=== PATIENT | female | born 1960 | race Caucasian/White ===

== ENCOUNTER → 2024-09-22 | Outpatient (CLI) | payer BC, SELFPAY ==
[2024-09-27 07:07] LABS: HPV APTIMA, High Risk Negative (Negative)
== END | disposition home or self-care (01) ==
LOC: LABSPEC 16:17
PROVIDERS: PCP Internal Medicine; Referring Provider Advanced Practice Midwife; Visit Provider Advanced Practice Midwife
DX: Z78.0 Asymptomatic menopausal state (principal)
CPT/HCPCS: 87624; 88175; G0145

== ENCOUNTER 2024-11-03 18:45 | Emergency (ER) | payer BC, SELFPAY ==
[2024-11-03 18:46] VITALS: BP 128/79; PULSE 80; RESP 18; TEMP 36.4; O2SAT 98; BMI 22.2
--- NOTE | 2024-11-03 19:16 | RAD_ITS ---
PROCEDURE: CHEST PA AND LATERAL 11/03/2024 REASON FOR EXAM: CHEST PAIN TECHNIQUE: Procedure Code: RADCXR Modality: DX Procedure: CHEST PA AND LATERAL COMPARISON: None FINDINGS: No focal consolidation. No pleural effusion or pneumothorax. Cardiac silhouette is within normal limits. No acute fractures. RAD/Chest PA and Lateral IMPRESSION: No focal consolidations. [id number]
--- NOTE | 2024-11-03 19:17 | ED.VIS.CHEST ---
HPI History of Present Illness Chief Complaint: Palpitations Narrative Narrative: Chief complaint and HPI: 64-year-old female with past medical history of inappropriate tachycardia on metoprolol, anxiety presents for evaluation of palpitations. Patient states that [place] States that she walked to the [place] as [place]. States she has had little to eat and drink. States [place] she was at the fair she felt palpitations in which her iPhone told her that she was in atrial fibrillation. She had a medic at the fair perform a twelve-lead. She states during the palpitation she had chest pain and shortness of breath that has since resolved. She denies any fever, chills, abdominal pain, nausea, vomiting. Has no history of atrial fibrillation. Review of systems: See HPI Medications: As listed on the chart Allergies: As listed on the chart PFSH: Per chart Vital signs: As listed on the chart. Reviewed. Physical exam: Gen: A&O x3, NAD Head: Normocephalic, atraumatic Eyes: No sclera icterus, conjunctiva clear ENT: Moist mucous membranes Neck: Trachea midline, No JVD CV: RRR, no murmurs, no peripheral edema Resp: Lungs CTA BL, no w/r/c GI: Abd soft, non-distended, non-tender, no r/r/g Musc: Full ROM, no deformity Skin: Warm, dry Neuro: Alert, oriented, grossly intact, sensation intact Psych: Cooperative, appropriate mood and affect [facility] Medical History Menopause Encounter for colorectal cancer screening using Cologuard test Normal colonoscopy Tachycardia Vaginal delivery Menstrual migraine 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 Closed left malleolar fracture Fracture of left distal radius Right clavicle fracture Venous insufficiency Anxiety PMS (premenstrual syndrome) Home Medications ?Medication ?Instructions ?Recorded ?Last Taken ?Type alprazolam 0.25 mg tablet (Xanax) 0.25 mg PO TID 07/30/24 Unknown History cholecalciferol (vitamin D3) 125 125 mcg PO QDAY 07/30/24 Unknown History mcg (5,000 unit) capsule metoprolol succinate 25 mg 25 mg PO Q12H 07/30/24 Unknown History tablet,extended release 24 hr Allergy/AdvReac Type Severity Reaction Status Date / Time cefaclor (From Ceclor) Allergy Intermediate Other Verified 11/03/24 18:48 Penicillins (PCN) Allergy Mild Hives Verified 11/03/24 18:48 Family History Mother Arthritis Bowel disease Depression Hypertension Osteoporosis Sister Asthma Depression Myocardial infarction, Onset Age: 50 Heart disease High cholesterol Surgical History Status post endovenous radiofrequency ablation (RFA) of saphenous vein Status post phlebectomy Social History adopted: No household members: none housing: condominium number of children: 3 current occupational status: employed 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 @ [employer] pets and animals: No history of recent travel: Yes ([employer] [place]) out of state: Yes out of country: Yes Smoking Status: Former smoker quit date: 02/24/94 alcohol intake: never substance use type: does not use well-balanced diet: daily or most days caffeine: Yes Type: coffee Number of servings: 8 eating out: other details: 2/ month during the past year weight has: remained stable what type of physical activity do you participate in: none minor/sabianist: Worship seatbelt use: always do you feel safe at home: Yes EXAM Physical Exam Const Vital Signs: 11/03/24 18:46 11/03/24 19:40 11/03/24 20:00 Temperature 97.6 F L Temperature Source Oral Pulse Rate 80 74 75 Respiratory Rate 18 16 16 Blood Pressure 128/79 H 130/90 H 107/88 H Blood Pressure Mean 95 103 94 Pulse Ox 98 100 100 Oxygen Delivery Method Room Air Room Air Room Air 11/03/24 21:00 11/03/24 21:59 11/03/24 22:00 Temperature 98 F Temperature Source Pulse Rate 73 73 73 Respiratory Rate 16 16 16 Blood Pressure 114/66 113/67 113/67 Blood Pressure Mean 82 82 82 Pulse Ox 100 100 100 Oxygen Delivery Method Room Air Room Air MDM MDM MDM Narrative Medical decision making narrative: 64-year-old female with past medical history of inappropriate tachycardia on metoprolol, anxiety presents for evaluation of palpitations. Patient states that she has [place] the [place] the [place]. States that she walked to the fair as well. States she has had little to eat and drink. States while she was at the fair she felt palpitations in which her iPhone told her that she was in atrial fibrillation. She had a medic at the fair perform a twelve-lead. She states during the palpitation she had chest pain and shortness of breath that has since resolved. Patient has the twelve-lead on her from the medic. Patient is in normal sinus rhythm with the twelve-lead. She was able to show up the rhythm on her iPhone in which her iPhone states she was in atrial fibrillation. There is artifact on the iPhone limited rhythm strip and there are P waves not consistent with atrial fibrillation. On presentation, patient in normal sinus rhythm with occasional PVCs. Differential diagnosis includes but is not limited to symptomatic PVCs, inappropriate tachycardia, electrolyte abnormality, dehydration, arrhythmia, anemia thyroid disease, ACS, PE. NS bolus and aspirin ordered. EKG and chest x-ray reviewed. CBC without leukocytosis or anemia. Platelets unremarkable. Coagulation panel unremarkable. D-dimer unremarkable. BMP unremarkable. Magnesium level mildly elevated at 2.4. Troponin unremarkable x 2. BNP unremarkable. TSH unremarkable. Patient has remained on the monitor here in the emergency department. No tachycardia or arrhythmia. At this point in time, unclear etiology for patient's palpitations. Follow-up with PCP. Return precautions explained. She confirmed understand the plan. Patient will discharge home. EKG: Interpreted by me/EM physician: EKG shows normal sinus rhythm without acute ischemic changes. Heart rate 78 Diagnostic: Interpreted by me/EM physician: Chest x-ray without pneumonia, effusion, cardiomegaly, pneumothorax. Radiology in agreement. Impression: 1. Palpitations Lab Data Labs: Laboratory Results - last 24 hr 11/03/24 11/03/24 19:06 20:55 WBC 6.9 RBC 4.46 Hgb 13.5 Hct 39.9 MCV 89.5 MCH 30.3 MCHC 33.8 RDW Std Deviation 40.0 RDW Coeff of [place] 12.3 Plt Count 219 MPV 9.3 Immature Gran % (Auto) 0.300 Neut % (Auto) 52.9 Lymph % (Auto) 37.2 [place] % (Auto) 7.7 Eos % (Auto) 1.5 Baso % (Auto) 0.4 Absolute Neuts (auto) 3.7 Absolute Lymphs (auto) 2.56 Nucleated RBC % 0 PT 14.8 INR 1.1 APTT 27.5 D-Dimer Quant (PE/DVT) < 0.27 L Sodium 138 Potassium 3.8 Chloride 103 Carbon Dioxide 22.6 Anion Gap 12 BUN 15 Creatinine 1.00 Estim Creat Clear Calc 61.46 Est GFR (MDRD) Non-Af 63 BUN/Creatinine Ratio 15.4 Glucose 103 H Calcium 9.5 Magnesium 2.4 H Troponin T High Sens < 6 Troponin T Hi Sens 2 Hr < 6 NT pro BNP II 94 TSH 0.625 Radiography Diagnostic Testing: Clinical Impression(s) from Imaging Studies Chest X-Ray 11/03/24 19:16 IMPRESSION: No focal consolidations. [id number] Dis[facility] Plan Triage Chief Complaint: Palpitations ED Provider: Joshua Alcantar Dx/Rx/DC Orders Clinical Impression: Palpitations Instructions: ED Heart Palpitations Prescriptions: No Action alprazolam [Xanax] 0.25 mg tablet 0.25 mg PO TID metoprolol succinate 25 mg tablet extended release 24 hr 25 mg PO Q12H cholecalciferol (vitamin D3) 125 mcg (5,000 unit) capsule 125 mcg PO QDAY Primary Care Provider: Lidia Lind Referrals: Lidia Lind MD [Primary Care Provider] - 3-5 Days Activity Restrictions/Additional Instructions: Follow-up with primary care physician. Return back to ED symptoms change or worsen. Print Language: Greek Disposition Disposition: Home, Self Care
[2024-11-03] MEDS: 0.9% Normal Saline (1000mL) 1,000 ML 999 ML IV (19:26)
[2024-11-03 19:35] LABS: Hematocrit 39.9 % (37-47); Hemoglobin 13.5 g/dL (12.0-15.0); Immature Granulocytes Count 0.020 X10^3/uL (0.0-0.0); Mean Corp Hgb Conc 33.8 g/dL (32-36); Mean Corpuscular Volume 89.5 fL (81-99); Mean Platelet Vol. 9.3 fl (6.2-12.0); NRBC Flagged by Analyzer 0 % (0-5); Platelet Count 219 K/mm3 (150-450); RBC Distribution Width CV 12.3 % (11.6-14.6); RBC Distribution Width SD 40.0 fl (35.1-43.9); Red Blood Count 4.46 M/mm3 (4.2-5.4); White Blood Count 6.9 K/mm3 (4.4-11.0)
[2024-11-03 19:40] VITALS: BP 130/90; PULSE 74; RESP 16; O2SAT 100
[2024-11-03 19:55] LABS: Anion Gap 12 (5-15); BUN 15 mg/dL (4-19); BUN/Creat Ratio 15.4 RATIO (10-20); Calcium,Total 9.5 mg/dL (7.6-11.0); Carbon Dioxide 22.6 mmol/L (21.0-32.0); Chloride 103 mmol/L (98-108); Estimated Creatinine Clearance 61.46 ml/min (50-250); Glucose 103 mg/dL (70-99); Magnesium 2.4 mg/dL (1.5-2.2); Potassium 3.8 mmol/L (3.3-5.1); Pro- Brain NATRIURETIC PEPTIDE 94 pg/mL (<=900); Troponin T High Sensitivity < 6 ng/L (<=14)
[2024-11-03 20:00] VITALS: BP 107/88; PULSE 75; RESP 16; O2SAT 100
[2024-11-03 20:06] LABS: Prothrombin Time (Protime)PT. 14.8 SECONDS (11.7-14.9)
[2024-11-03 20:07] LABS: Partial Thromboplast Time 27.5 Seconds (24.1-36.2)
[2024-11-03 20:14] LABS: D-Dimer Quantitative (DVT/PE) < 0.27 FEU/ug/m (0.27-0.49)
[2024-11-03 21:00] VITALS: BP 114/66; PULSE 73; RESP 16; O2SAT 100
[2024-11-03 21:34] LABS: Troponin T High Sens 2 HR < 6 ng/L (<=14)
[2024-11-03 21:59] VITALS: BP 113/67; PULSE 73; RESP 16; O2SAT 100
[2024-11-03 22:00] VITALS: BP 113/67; PULSE 73; RESP 16; TEMP 36.6; O2SAT 100
== END 2024-11-03 22:12 | disposition home or self-care (01) ==
PROVIDERS: Emergency Provider Surgery; PCP Internal Medicine; Visit Provider Surgery
DX: R00.2 Palpitations (principal); F41.9 Anxiety disorder, unspecified; Z87.891 Personal history of nicotine dependence; Z79.899 Other long term (current) drug therapy
CPT/HCPCS: 71046; 80048; 83735; 83880; 84443; 84484; 85025; 85379; 85610; 85730; 93005; 96360; 99283; A4216